=== PATIENT | male | born 1940 | race Caucasian/White ===

== ENCOUNTER 2017-10-23 23:49 | Observation (INO) | payer MEDICARE, OTHER ==
[~2017-10-23] VITALS: Ht 180.3 cm; Wt 150.0 kg
[2017-10-24 00:51] LABS: BASOPHILS % (AUTO) 0.2 % (0-1); EOSINOPHILS # (AUTO) 0.3 X10'3 (0-0.9); EOSINOPHILS % (AUTO) 3.4 % (0-6); HEMATOCRIT 33.8 % (42.0-52.0); HEMOGLOBIN 11.3 g/dl (14.0-17.9); LYMPHOCYTES # (AUTO) 1.4 X10'3 (1.1-4.8); LYMPHOCYTES % (AUTO) 16.7 % (21-51); MEAN CORPUSCULAR HEMOGLOBIN 31.5 PG (27.0-31.0); MEAN CORPUSCULAR HGB CONC 33.4 % (33.0-36.5); MEAN CORPUSCULAR VOLUME 94.2 FL (78-98); MEAN PLATELET VOLUME 9.9 FL (7.4-10.4); MONOCYTES # (AUTO) 0.8 X10'3 (0-0.9); MONOCYTES % (AUTO) 9.2 % (2-12); NEUTROPHILS # (AUTO) 5.8 X10'3 (1.8-7.7); NEUTROPHILS % (AUTO) 70.5 % (42-75); PLATELET COUNT 235 X10'3 (140-440); RED BLOOD COUNT 3.59 X10'6 (4.70-6.10); RED CELL DISTRIBUTION WIDTH 15.5 % (11.5-14.5); WHITE BLOOD COUNT 8.2 X10'3 (4.5-11.0)
[2017-10-24 00:58] LABS: PARTIAL THROMBOPLASTIN TIME 23 SECONDS (22-32); PROTHROMBIN TIME 10.1 SECONDS (9.0-12.0)
[2017-10-24 01:12] LABS: ALANINE AMINOTRANSFERASE 29 U/L (12-78); ALBUMIN 3.2 G/DL (3.4-5.0); ALBUMIN/GLOBULIN RATIO 0.8 (1.1-1.5); ALKALINE PHOSPHATASE 74 IU/L (46-116); ANION GAP 9 (8-16); ASPARTATE AMINO TRANSFERASE 20 U/L (10-37); BILIRUBIN,TOTAL 0.3 MG/DL (0.1-1.0); BLOOD UREA NITROGEN 35 MG/DL (7-18); BUN/CREATININE RATIO 13.6 (5.4-32.0); CALCIUM 8.6 MG/DL (8.5-10.1); CHLORIDE 104 MMOL/L (99-107); CREATININE 2.57 MG/DL (0.60-1.10); GLUCOSE 111 MG/DL (70-104); LIPASE 139 U/L (73-393); MAGNESIUM 1.8 MG/DL (1.5-2.4); POTASSIUM 4.2 MMOL/L (3.5-5.1); SODIUM 142 MMOL/L (135-145); TOTAL PROTEIN 7.3 G/DL (6.4-8.2); eGFR 25 ML/MIN
[2017-10-24] MEDS ORDERED: ondansetron/PF 4mg/2ml inj IV PRN (02:35)
[2017-10-24] MEDS ORDERED: acetaminophen 325mg tablet PO PRN (02:35)
[2017-10-24] MEDS ORDERED: HYDROcodone/acetaminophen 10/325mg tab PO PRN (02:40)
[2017-10-24] MEDS ORDERED: dextrose 50%-water 50ml dispensing syringe IV PRN (02:40)
[2017-10-24] MEDS ORDERED: dextrose ORAL solution 15 GM/59 ML bottle PO PRN ×2 (02:40)
[2017-10-24] MEDS ORDERED: glucagon, human recombinant 1mg kit SUBCUT PRN (02:40)
[2017-10-24] MEDS: MESSAGE TO PHARMACY PO ONE (02:46)
[2017-10-24] MEDS ORDERED: LEVO150T PO (04:31)
[2017-10-24] MEDS ORDERED: CITA20TA11 PO (04:31)
[2017-10-24] MEDS ORDERED: FENO145T38 PO (04:31)
[2017-10-24] MEDS ORDERED: ASCO500C15 PO (04:31)
[2017-10-24] MEDS ORDERED: ATOR40TA PO (04:31)
[2017-10-24] MEDS ORDERED: FERR325T28 PO (04:31)
[2017-10-24] MEDS ORDERED: NPH,100V2 SQ (04:31)
[2017-10-24] MEDS ORDERED: LISI-600 PO (04:31)
[2017-10-24] MEDS ORDERED: HYDR-565 PO (04:31)
[2017-10-24] MEDS ORDERED: ASPI81TA52 PO (04:31)
[2017-10-24] MEDS ORDERED: GABA-534 PO (04:31)
[2017-10-24] MEDS ORDERED: NOVRI SQ (04:31)
[2017-10-24] MEDS ORDERED: ALBU8.5H8 INH (04:31)
[2017-10-24] MEDS ORDERED: TRAZ-143 PO (04:31)
[2017-10-24] MEDS ORDERED: IPRA3AMP9 IH (04:31)
[2017-10-24] MEDS ORDERED: BECL8.7A7 INH (04:31)
[2017-10-24] MEDS ORDERED: CHOL10002 PO (04:31)
[2017-10-24] MEDS ORDERED: FURO-150 PO (04:31)
[2017-10-24] MEDS: dextrose 50%-water 50ml dispensing syringe IV PRN (05:48)
[2017-10-24 07:41] LABS: HEMOGLOBIN A1C 9.2 % (4.5-6.2)
[2017-10-24] MEDS: levoTHYROXINE 75mcg tablet PO SCH (07:52)
[2017-10-24] MEDS: pneumococcal 23-VAL P-sac vacc 25 mcg/0.5ml vial IMVAC ONE (07:53)
[2017-10-24] MEDS: ipratropium/albuterol 3ml nebule NEB PRN (08:23)
[2017-10-24] MEDS: fenofibrate 145mg tablet PO SCH (08:45)
[2017-10-24] MEDS: CITALOpram 10mg tablet PO SCH (08:46)
[2017-10-24] MEDS: lisinopril 2.5mg tablet PO SCH (08:46)
[2017-10-24] MEDS: gabapentin 400mg capsule PO SCH (08:46)
[2017-10-24] MEDS: aspirin 81mg tab.chew PO SCH (08:46)
[2017-10-24] MEDS: furosemide 10 MG/1 ML 10ml inj IV SCH (08:47)
[2017-10-24] MEDS: budesonide 0.5mg/2ml UD nebule IH SCH (09:00)
[2017-10-24 10:10] VITALS: BP 132/53
[2017-10-24 12:00] VITALS: BP 142/55
[2017-10-24 15:00] VITALS: BP 149/52
[2017-10-24] MEDS: insulin Lispro (HumaLOG) vial - multi-dose SQ SCH (18:09)
[2017-10-24] MEDS ORDERED: traZODone 50mg tablet PO SCH (20:00)
[2017-10-24] MEDS ORDERED: insulin glargine (Lantus) pen - multi-dose SQ SCH (21:00)
== END 2017-10-24 18:15 | disposition home or self-care (01) ==
LOC: ER 23:49 → UNDOADMIN 10-24 02:31 → ED HOLD 10-24 02:31 → PCU 3S 10-24 10:05
PROVIDERS: ADMIT Family Medicine; ATTEND Family Medicine
DX: R07.89 Other chest pain (principal); E03.9 Hypothyroidism, unspecified; E66.01 Morbid (severe) obesity due to excess calories; E78.5 Hyperlipidemia, unspecified; F32.9 Major depressive disorder, single episode, unspecified; G47.33 Obstructive sleep apnea (adult) (pediatric); E11.22 Type 2 diabetes mellitus with diabetic chronic kidney disease; E11.40 Type 2 diabetes mellitus with diabetic neuropathy, unspecified; I27.20 Pulmonary hypertension, unspecified; I13.0 Hypertensive heart and chronic kidney disease with heart failure and stage 1 through stage 4 chronic kidney disease, or unspecified chronic kidney disease; I50.32 Chronic diastolic (congestive) heart failure; N18.4 Chronic kidney disease, stage 4 (severe); J44.9 Chronic obstructive pulmonary disease, unspecified; G89.4 Chronic pain syndrome; Z87.891 Personal history of nicotine dependence; Z79.4 Long term (current) use of insulin; Z82.5 Family history of asthma and other chronic lower respiratory diseases
CPT/HCPCS: 36415; 71045; 80053; 82948; 83036; 83690; 83735; 83880; 84443; 84484; 85025; 85610; 85730; 87070; 94640; 94760; 96372; 96374; 96375; 99285; G0378; J1940; J7626; 90732; J1815

== ENCOUNTER 2019-10-02 08:32 | Emergency (ER) | payer MEDICARE, OTHER ==
[~2019-10-02] VITALS: Ht 180.3 cm; Wt 115.0 kg
[~2019-10-02 08:32] MED LIST: ALBU8.5H8 INH; ASCO500C15 PO; ASPI81TA52 PO; ATOR40TA PO; BECL8.7A7 INH; CHOL10002 PO; CITA20TA28 PO; FENO145T38 PO; FERR325T28 PO; FURO-150 PO; GABA-534 PO; HYDR-4353 PO; IPRA3AMP9 IH; LEVO150T PO; LISI-600 PO; NOVRI SQ; NPH,100V2 SQ; TRAZ-251 PO
[2019-10-02] MEDS ORDERED: CefTRIAXone 2gm/D5W 50ml 50 ML IV ONE (09:15)
[2019-10-02 09:37] LABS: BASOPHILS % (AUTO) 0.5 % (0-1); EOSINOPHILS % (AUTO) 0.9 % (0-6); HEMATOCRIT 36.4 % (42.0-52.0); HEMOGLOBIN 12.3 g/dl (14.0-17.9); LYMPHOCYTES # (AUTO) 0.7 X10'3 (1.1-4.8); LYMPHOCYTES % (AUTO) 15.5 % (21-51); MEAN CORPUSCULAR HEMOGLOBIN 32.3 PG (27.0-31.0); MEAN CORPUSCULAR HGB CONC 33.9 g/dL (33.0-36.5); MEAN CORPUSCULAR VOLUME 95.2 FL (78-98); MONOCYTES # (AUTO) 0.7 X10'3 (0-0.9); MONOCYTES % (AUTO) 16.1 % (2-12); NEUTROPHILS # (AUTO) 2.9 X10'3 (1.8-7.7); PLATELET COUNT 216 X10'3 (140-440); RED BLOOD COUNT 3.82 X10'6 (4.70-6.10); RED CELL DISTRIBUTION WIDTH 14.9 % (11.5-14.5); WHITE BLOOD COUNT 4.3 X10'3 (4.5-11.0)
[2019-10-02 09:48] LABS: PARTIAL THROMBOPLASTIN TIME 28 SECONDS (22-32)
[2019-10-02 09:54] LABS: ALANINE AMINOTRANSFERASE 21 U/L (12-78); ALBUMIN/GLOBULIN RATIO 0.8 (1.1-1.5); ALKALINE PHOSPHATASE 57 IU/L (46-116); ANION GAP 10 (8-16); ASPARTATE AMINO TRANSFERASE 20 U/L (10-37); BILIRUBIN,TOTAL 0.6 MG/DL (0.1-1.0); BLOOD UREA NITROGEN 17 MG/DL (7-18); CALCIUM 8.6 MG/DL (8.5-10.1); CHLORIDE 102 MMOL/L (99-107); CREATININE 1.42 MG/DL (0.60-1.10); GLUCOSE 193 MG/DL (70-104); MAGNESIUM 1.6 MG/DL (1.5-2.4); POTASSIUM 4.3 MMOL/L (3.5-5.1); SODIUM 139 MMOL/L (135-145); TOTAL PROTEIN 6.6 G/DL (6.4-8.2); eGFR 48 ML/MIN
[2019-10-02] MEDS ORDERED: normal saline 1000ML IV soln IVB ONE (10:15)
[2019-10-02 10:23] LABS: TOTAL CELLS COUNTED 100
[2019-10-02 10:24] LABS: PLATELET ESTIMATE NORMAL
[2019-10-02] MEDS ORDERED: AZIT250T81 PO (10:42)
[2019-10-02] MEDS ORDERED: ONDA8TAB13 PO (10:42)
[2019-10-02 12:23] VITALS: BP 157/78
== END 2019-10-02 12:25 | disposition home or self-care (01) ==
LOC: ER 08:32
DX: J06.9 Acute upper respiratory infection, unspecified (principal); J10.1 Influenza due to other identified influenza virus with other respiratory manifestations; R11.2 Nausea with vomiting, unspecified; R19.7 Diarrhea, unspecified; I25.10 Atherosclerotic heart disease of native coronary artery without angina pectoris; I11.0 Hypertensive heart disease with heart failure; I50.9 Heart failure, unspecified; E78.00 Pure hypercholesterolemia, unspecified; J44.9 Chronic obstructive pulmonary disease, unspecified; E11.9 Type 2 diabetes mellitus without complications; E03.9 Hypothyroidism, unspecified; G89.29 Other chronic pain; F41.9 Anxiety disorder, unspecified; Z90.49 Acquired absence of other specified parts of digestive tract; Z95.0 Presence of cardiac pacemaker; Z91.041 Radiographic dye allergy status; Z79.82 Long term (current) use of aspirin; Z79.4 Long term (current) use of insulin; Z79.899 Other long term (current) drug therapy
CPT/HCPCS: 36415; 71045; 80053; 83605; 83735; 84145; 85025; 85610; 85730; 87040; 87502; 87503; 93005; 96365; 99285; J0696; J7030